=== PATIENT | female | born 1970 | race Caucasian/White ===

== ENCOUNTER 2016-10-14 15:51 | Outpatient (CLI) | payer OTHER ==
[2016-10-14 16:32] LABS: BASOPHILS # (AUTO) 0.1 K/uL (0-0.2); BASOPHILS % (AUTO) 0.5 % (0.0-3.0); EOSINOPHILS # (AUTO) 0.3 K/ul (0.0-0.7); EOSINOPHILS % (AUTO) 2.5 % (0.0-7.0); HEMATOCRIT 34.3 % (37.0-47.0); HEMOGLOBIN 10.6 g/dl (12.0-16.0); IMMATURE GRANULOCYTE % (AUTO) 0.3 % (0.0-5.0); LYMPHOCYTES # (AUTO) 2.3 K/uL (0.60-3.4); LYMPHOCYTES % (AUTO) 20.8 (10.0-50.0); MEAN CORPUSCULAR HEMOGLOBIN 22.4 pg (27.0-31.0); MEAN CORPUSCULAR HGB CONC 30.9 (31.8-35.4); MEAN CORPUSCULAR VOLUME 72.4 fl (81.0-99.0); MONOCYTES # (AUTO) 0.7 K/uL (0.4-2.0); MONOCYTES % (AUTO) 6.6 (0-10); NEUTROPHILS # (AUTO) 7.7 K/ul (2.0-6.9); NEUTROPHILS % (AUTO) 69.3; PLATELET COUNT 281 10^3/uL (140-440); RED BLOOD COUNT 4.74 10^6/ul (4.20-5.40); WHITE BLOOD COUNT 11.18 K/ul (4.6-10.2)
[2016-10-14 16:53] LABS: ALBUMIN 3.8 g/dL (3.4-5.0); ALBUMIN/GLOBULIN RATIO 1.12; ANION GAP 13.1; BILIRUBIN,TOTAL 0.24 mg/dL (0.00-1.20); BUN/CREATININE RATIO 14.11; CALCIUM 9.5 mg/dL (8.2-10.2); CHOL/HDL RATIO 4.9 (4.5-5.5); CREATININE 0.85 mg/dL (0.60-1.30); POTASSIUM 4.1 mmol/L (3.5-5.10); TOTAL PROTEIN 7.2 g/dL (6.4-8.2)
--- NOTE | 2016-10-15 07:57 | DI ---
Exam: Three x-rays of the cervical spine. Comparison: None available. Reason for exam: Cervicalgia. FINDINGS: No acute fracture or listhesis. There is mild degenerative disease with anterior osteoph yte formation. The prevertebral soft tissues are within normal limits. There is a normal appearing cervical lordotic curve. The dens is intact on the Raymond view. Impression: No acute fracture or listhesis in the cervical spine.
--- NOTE | 2016-10-15 07:57 | DI ---
Exam: Three x-rays of the thoracic spine. Comparison: None available. Reason for exam: Cervicalgia. FINDINGS: There is minimal dextroscoliosis centered in the lower thoracic spine. No acute fracture or listhesis. The vertebral bodies and intervertebral body disc space heights are well maintained. The uppermost thoracic and lower most cervical spine are not well seen secondary to summation from the patient's shoulders. Mild degenerative disease is seen with osteophyte formation. Impression: No acute fracture or listhesis in the thoracic spine.
--- NOTE | 2016-10-15 08:03 | DI ---
Exam: Five x-rays of the lumbar spine. Comparison: None available. Reason for exam: Cervicalgia. FINDINGS: No acute fracture or listhesis. Degenerative changes seen with intervertebral body disc space height loss at L5-S1 with osteophyte formation. There is a normal appearing lumbar lordotic c urve. No significant vascular calcifications. Impression: 1. No acute fracture or listhesis in the lumbar spine. 2. Degenerative disease at L5-S1 with intervertebral body disc space height loss and osteophyte for mation.
== END 2016-10-14 15:52 | disposition home or self-care (01) ==
LOC: RAD 15:51
PROVIDERS: ATTEND Nurse Practitioner Family
DX: M54.2 Cervicalgia (principal); M54.5 Low back pain; M54.6 Pain in thoracic spine; F32.9 Major depressive disorder, single episode, unspecified; G47.00 Insomnia, unspecified
CPT/HCPCS: 36415; 80053; 80061; 84439; 84443; 85025

== ENCOUNTER 2016-12-17 12:39 | Outpatient (CLI) ==
--- NOTE | 2016-12-17 15:46 | MRI ---
EXAM: MRI thoracic spine without IV contrast. DATE: 12/17/2016. HISTORY: Dorsaligia. Thoracic back pain. TECHNIQUE: Sagittal and axial T1W and T2W sequences of the thoracic spine along with sagittal IR an d coronal T2W sequences were obtained using 1.2 Lucrecia magnet. No IV contrast. COMPARISON: Thoracic spine series 10/14/2016. FINDINGS: Sagittal counting roll examiner sequence of the cervical and upper thoracic spine reveals straigh tening of the normal cervical lordosis, , likely due to positioning or muscle spasm. No acute c-spi ne fracture, subluxation, osseous malignancy, or jumped facet is evident. Small anterior osteophyte s are visible at C5-6 and C6-7. Minor disc space narrowing is seen at C4-5, C5-6 and C6-7. Cervica l spinal cord reveals no syrinx, cord edema, myelomalacia, or neoplasm. Visible brainstem is normal . No acute infarct, hemorrhage, or neoplasm is seen within the cerebrum or cerebellum. Pituitary g land is likely normal in size. No cervical lymphadenopathy is apparent. T2W/T1W heterogeneously br ight, 1 cm and adjacent 8 mm foci in the left thyroid lobe may represent hemorrhagic cysts. There are 12 thoracic vertebra with paired ribs. Very mild rightward curvature of the thoracic spin e is evident. No acute T-spine fracture, subluxation, osseous malignancy, or jumped facet is appare nt. Thoracic vertebra are normal in height. Bone marrow signal is normal. Small, chronic Schmorl' s node is revealed at the T4 inferior endplate. Thoracic intervertebral discs are normal in height. Conus medullaris appears to terminate near L1-2. No cord edema, syrinx, myelomalacia, or distinct neoplasm is identified. No acute rib fracture, rib lesion, paraspinal mass, or chest wall malignancy is detected. Trachea, thoracic esophagus, and thoracic aorta are unremarkable. No definitive mediastinal lymphadenopathy, hilar lymphadenopathy, pneumonia, lung mass, or pleural effusion. No shoulder dislocation or malig pavan is seen. Visible portions of the liver, spleen, adrenal glands and kidneys are normal. Segmental analysis: C7-T1: Minimal posterior disc bulge does not cause cord compression, central stenosis or foraminal stenosis. T1-2: Normal, except for minor right, narrowing due to minor right facet arthropathy. T2-3: Normal. T3-4: Normal. T4-5: Normal. T5-6: Normal. T6-7: Normal. T7-8: Normal. T8-9: Normal, except for minor facet disease. T9-10: Normal, except for minor facet disease. T10-11: Normal. T11-12: Normal. T12-L1: Normal. IMPRESSIONS: 1. T-spine minor rightward curvature and minor facet arthropathy. 2. No thoracic disc protrusion/bulge, cord compression or central stenosis. 3. Left thyroid lobe small nodules. If this is not been previously evaluated, I would recommend ult rasound.
== END 2016-12-17 12:40 | disposition home or self-care (01) ==
LOC: RAD 12:39
PROVIDERS: ATTEND Nurse Practitioner Family
DX: M54.9 Dorsalgia, unspecified (principal); G89.29 Other chronic pain; Z87.828 Personal history of other (healed) physical injury and trauma

== ENCOUNTER 2016-12-23 12:54 | Outpatient (CLI) ==
--- NOTE | 2016-12-23 13:48 | US ---
EXAM: THYROID ULTRASOUND HISTORY: Nontoxic single thyroid nodule FINDINGS: Ultrasound thyroid. Real time brice-scale ultrasound and color Doppler imaging. COMPARISON: None The right thyroid lobe measures 6.5 x 1.6 x 2.1 cm. The isthmus measures 0.6 cm. The left thyroid lobe measures 5.2 x 2.0 x 1.8 cm. In the upper right lobe, there is a 1.5 x 1.1 x 1.3 cm isoechoic solid nodule with no obvious ad operations intern al hyperemia or definite microcalcification. In the mid right lobe, there is a 0.7 x 0.7 x 0.4 cm s lightly hypoechoic solid oval shaped nodule with no atypia. Tiny 3 mm hypoechoic nodule in the isthmus. The inferior left lobe has a 3.1 x 1.9 x 1.9 cm oval-shaped isoechoic partially cystic nodule with n o internal hyperemia. There may be a few punctate coarse calcifications within this nodule. There is a tiny cystic nodule in the mid left lobe at 0.5 cm. The remainder of the gland is slightly heterogeneous with relative paucity of blood flow. IMPRESSION: 1. Enlarged heterogeneous gland with bilateral nodules as described. Some atypia is suggested with in the dominant nodule of the gland located inferiorly on the left. 2. Speciality consultation with endocrinology for future management to be considered at the discret ion of the ordering physician. Follow-up ultrasound recommended.
== END 2016-12-23 12:55 | disposition home or self-care (01) ==
LOC: RAD 12:54
PROVIDERS: ATTEND Nurse Practitioner Family
DX: E04.1 Nontoxic single thyroid nodule (principal)

== ENCOUNTER 2016-12-24 14:20 | Outpatient (CLI) ==
--- NOTE | 2016-12-25 15:49 | MRI ---
EXAM: Cervical spine MRI without contrast. HISTORY: Neck pain. COMPARISON: Cervical spine radiographs 10/14/2016. TECHNIQUE: Multiplanar, multisequence MR images were acquired cervical spine without contrast. FINDINGS: The craniocervical junction is unremarkable and the cervical cord has normal signal inten sity. There is straightening of the usual cervical lordosis. The cervical vertebra are normal in h eight and intrinsic bone marrow signal. There is osteophytosis with disc space narrowing at C4-5, C 5-6 and C6-7. Canal diameter is developmentally narrow. There is mild adenoidal and palatine tonsi llar hypertrophy which is considered within normal variation for the patient's age. Two well circum scribed bright T1 and T2 signal cystic lesions are present in the left lobe of the thyroid gland. T he more anterior measures 11 mm x 10 mm and the more posterior 8.7 mm x 6.3 mm. Visualized lung ap ices are clear. C2-3: The intervertebral disc is normal. C3-4: The intervertebral disc is normal. C4-5: There is a mild posterior disc osteophyte complex that is asymmetric to the right which minim ally indents the cervical cord. Bilateral uncovertebral hypertrophy is present and there is mild le ft and mild to moderate right neural foraminal stenosis. There is no central canal stenosis. C5-6: There is a minor posterior disc osteophyte complex that is asymmetric to the left with a smal l more focal left paracentral component that minimally indents the left ventral cervical cord withou t edema. There is no central canal stenosis or foraminal stenosis. C6-7: There is a mild disc bulge and bilateral uncovertebral hypertrophy. This causes mild left an d moderate right neural foraminal stenosis. There is no central canal stenosis. C7-T1: There is a minor posterior disc bulge and right facet arthropathy without foraminal stenosis or central canal stenosis. IMPRESSION: 1. Mild cervical degenerative spondylosis without disc herniations or spinal stenosis. 2. Mild to moderate right C4-5 and moderate right C6-7 neural foraminal stenosis. 3. Two small hyperintense T2 signal cystic lesions are present in the left lobe of the thyroid glan d which statistically may represent cysts or adenomas. Thyroid ultrasound could better define the a natomy.
== END 2016-12-24 14:21 | disposition home or self-care (01) ==
LOC: RAD 14:20
PROVIDERS: ATTEND Nurse Practitioner Family
DX: M54.2 Cervicalgia (principal); Z87.828 Personal history of other (healed) physical injury and trauma